=== PATIENT | male | born 1935 | race African-American/Black ===

== ENCOUNTER → 2017-09-18 | Outpatient (CLI) | payer MEDICARE | END | disposition home or self-care (01) | LOC: KCIC US 14:56 | DX: M79.661 Pain in right lower leg (principal) | CPT/HCPCS: 93971 ==

== ENCOUNTER 2018-11-22 19:56 | Emergency (ER) | payer MEDICARE, BC ==
[~2018-11-22] VITALS: Ht 172.7 cm; Wt 81.6 kg
[~2018-11-22 19:56] MED LIST: FINA5TAB4 PO; RANI150T2 PO; SIMV20TA3 PO; TERA10CA3 PO
[2018-11-22 20:12] LABS: BILIRUBIN,URINE LARGE (NEG); CLARITY,URINE TURBID; NITRITE,URINE POSITIVE (NEG); PH,URINE 5.5; PROTEIN,URINE >=300 mg/dL (NEG-TRACE)
[2018-11-22 20:24] LABS: COLOR,URINE BROWN
[2018-11-22 20:25] LABS: RBC,URINE TNTC /HPF (0-2)
[2018-11-22 20:26] LABS: BACTERIA,URINE MODERATE /HPF (0-FEW); WBC,URINE TNTC /HPF (0-4)
--- NOTE | 2018-11-22 20:26 | PHYS DOC ---
Past Medical History Past Medical History: GERD, High Cholesterol, Hypertension, Other Additional Past Medical Histor: glaucoma, constipation, prostate Past Surgical History: Other Additional Past Surgical Histo: colonscopy Alcohol Use: None Drug Use: None Adult General Chief Complaint Chief Complaint: BLOOD IN URINE HPI HPI Patient is a 83 year old female with history of hypertension, high cholesterol, BPH, who presents to the ED today complaining of hematuria that began this morning. Patient denies any dysuria. Denies any abdominal pain, nausea vomiting. Denies any personal history of kidney stones. Denies any fever. Review of Systems Review of Systems Constitutional: Denies fever or chills [] Eyes: Denies change in visual acuity, redness, or eye pain [] HENT: Denies nasal congestion or sore throat [] Respiratory: Denies cough or shortness of breath [] Cardiovascular: No additional information not addressed in HPI [] GI: Denies abdominal pain, nausea, vomiting, bloody stools or diarrhea [] : Reports hematuria. Denies dysuria Musculoskeletal: Denies back pain or joint pain [] Integument: Denies rash or skin lesions [] Neurologic: Denies headache, focal weakness or sensory changes [] All other systems were reviewed and found to be within normal limits, except as documented in this note. Current Medications Current Medications Current Medications Medications (Trade) Dose Ordered Sig/Jaja Start Time Stop Time Status Last Admin Dose Admin Ceftriaxone Sodium (Rocephin) 1 gm 1X ONCE 11/22/18 20:45 11/22/18 20:46 DC 11/22/18 20:49 1 GM Allergies Allergies Allergies Coded Allergies Type Severity Reaction Last Updated Verified No Known Drug Allergies 03/27/15 No Physical Exam Physical Exam Constitutional: Well developed, well nourished, no acute distress, non-toxic appearance. [] HENT: Normocephalic, atraumatic, bilateral external ears normal, oropharynx moist, no oral exudates, nose normal. [] Eyes: PERRLA, EOMI, conjunctiva normal, no discharge. [] Neck: Normal range of motion, no tenderness, supple, no stridor. [] Cardiovascular:Heart rate regular rhythm, no murmur [] Lungs & Thorax: Bilateral breath sounds clear to auscultation [] Abdomen: Bowel sounds normal, soft, no tenderness, no masses, no pulsatile masses. [] Skin: Warm, dry, no erythema, no rash. [] Back: No tenderness, no CVA tenderness. [] Extremities: No tenderness, no cyanosis, no clubbing, ROM intact, no edema. [] Neurologic: Alert and oriented X 3, normal motor function, normal sensory function, no focal deficits noted. [] Psychologic: Affect normal, judgement normal, mood normal. [] Current Patient Data Vital Signs Vital Signs Date Time Temp Pulse Resp B/P (MAP) Pulse Ox O2 Delivery O2 Flow Rate FiO2 11/22/18 20:58 98.2 91 18 142/81 (101) 95 Room Air 98.2 Lab Values Laboratory Tests Test 11/22/18 20:02 11/22/18 20:42 Urine Collection Type Unknown Urine Color Brown Urine Clarity Turbid Urine pH 5.5 Urine Specific [place] 1.025 Urine Protein >=300 mg/dL (NEG-TRACE) Urine Glucose (UA) Negative mg/dL (NEG) Urine Ketones (Stick) 15 mg/dL (NEG) Urine Blood Large (NEG) Urine Nitrite Positive (NEG) Urine Bilirubin Large (NEG) Urine Urobilinogen Dipstick 1.0 mg/dL (0.2 mg/dL) Urine Leukocyte Esterase Large (NEG) Urine RBC Tntc /HPF (0-2) Urine WBC Tntc /HPF (0-4) Urine Bacteria Moderate /HPF (0-FEW) Urine Mucus Mod /LPF White Blood Count 4.2 x10^3/uL (4.0-11.0) Red Blood Count 4.88 x10^6/uL (4.30-5.70) Hemoglobin 13.0 g/dL (13.0-17.5) Hematocrit 41.0 % (39.0-53.0) Mean Corpuscular Volume 84 fL (79-100) Mean Corpuscular Hemoglobin 27 pg (25-35) Mean Corpuscular Hemoglobin Concent 32 g/dL (31-37) Red Cell Distribution Width 15.0 % (11.5-14.5) H Platelet Count 186 x10^3/uL (140-400) Neutrophils (%) (Auto) 73 % (31-73) Lymphocytes (%) (Auto) 16 % (24-48) L Monocytes (%) (Auto) 10 % (0-9) H Eosinophils (%) (Auto) 1 % (0-3) Basophils (%) (Auto) 0 % (0-3) Neutrophils # (Auto) 3.1 x10^3uL (1.8-7.7) Lymphocytes # (Auto) 0.7 x10^3/uL (1.0-4.8) L Monocytes # (Auto) 0.4 x10^3/uL (0.0-1.1) Eosinophils # (Auto) 0.0 x10^3/uL (0.0-0.7) Basophils # (Auto) 0.0 x10^3/uL (0.0-0.2) Sodium Level 140 mmol/L (136-145) Potassium Level 3.7 mmol/L (3.5-5.1) Chloride Level 105 mmol/L (98-107) Carbon Dioxide Level 26 mmol/L (21-32) Anion Gap 9 (6-14) Blood Urea Nitrogen 21 mg/dL (8-26) Creatinine 1.6 mg/dL (0.7-1.3) H Estimated GFR (Cockcroft-Gault) 50.4 Glucose Level 129 mg/dL (70-99) H Calcium Level 8.7 mg/dL (8.5-10.1) Laboratory Tests 11/22/18 20:42 Laboratory Tests 11/22/18 20:42 EKG EKG [] Radiology/Procedures Radiology/Procedures []PROCEDURE: CT ABDOMEN PELVIS WO CONTRAST CT ABDOMEN PELVIS WO CONTRAST Indication: Hematuria. Exposure: One or more of the following individualized dose reduction techniques were utilized for this examination: 1. Automated exposure control 2. Adjustment of the mA and/or kV according to patient size 3. Use of iterative reconstruction technique. Comparison: None are available. Technique: No intravenous contrast given. No oral contrast per request. Findings: Evaluation of solid viscera, bowel and vasculature is compromised by the noncontrast technique. Lung bases are clear apart from minimal atelectasis or fibrosis. Multiple small low-density lesions within the liver. These are difficult to accurately characterize for the most part, the largest of these measures 2 Hounsfield units compatible with a cyst however. Spleen not enlarged. No peripancreatic fluid or inflammatory type change. No evidence of adrenal mass. There is no evidence of renal calculus. No hydronephrosis or evidence of ureteric calculus. Small hypodense lesion of the posterior left kidney measures about 1 cm, probable cyst. No evidence of calcified gallstone. There is mild aortic calcification. No significant lymph node enlargement. There is no evidence of significant small bowel distention. Colonic diverticulosis, without evidence of acute colitis. The appendix appears normal. No evidence of ascites or pneumoperitoneum. There is urinary bladder wall thickening. The prostate gland is enlarged. 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 IMPRESSION: 1. Colonic diverticulosis without evidence of acute colitis. 2. Small low-density lesions of the liver, some are too small to characterize but likely cysts or other benign etiology. 3. Small left renal lesion, most likely a small cyst. 4. Prostatomegaly. 5. Urinary bladder wall thickening. Possible etiologies include chronic outlet obstruction or cystitis. Electronically signed by: Shailesh Vazquez MD (11/22/2018 9:39 PM) [facility] Course & Med Decision Making Course & Med Decision Making Pertinent Labs and Imaging studies reviewed. (See chart for details) This is a 83-year-old male patient presenting to the ED today with hematuria that began this morning, no other symptoms. CBC with a normal WBC, BMP with creatinine of 1.6, BUN is normal, this is around patient's baseline. urine analysis is noted for large amount of leukocytes, blood, nitrites. CT of the abdomen and pelvic was noted for a large prostate which patient is aware of and on medication for, diverticulosis without colitis, benign liver lesions, small left renal cyst, and urinary bladder thickening with possibility of cystitis or chronic outlet obstruction. Patient was given Rocephin and discharged on cephalexin. Instructed to push fluids. His vitals and stable with normal temperature. Is in no distress. Has good follow-up. He was discharged to home and instructed to see his doctor in the course of this coming week, also provided urology. Dragon Disclaimer Dragon Disclaimer This electronic medical record was generated, in whole or in part, using a voice recognition dictation system. Departure Departure Impression: Primary Impression: Acute cystitis Additional Impression: Chronic renal failure Disposition: HOME, SELF-CARE Condition: STABLE Referrals: YINA JOSEPH Jr, MD (PCP) follow up with your doctor next week BRANDEE MONTALVO MD follow up next week Patient Instructions: Urinary Tract Infection Additional Instructions: You were evaluated in the emergency room and noted to have a bladder infection. We put you on antibiotics, ensure you complete them. Push fluids. Follow-up with your doctor in the course of this week or the provided urologist, come back to the ED at any point symptoms worsen. Scripts Cephalexin (CEPHALEXIN) 500 Mg Tablet 1 TAB PO BID, #14 TAB Prov: TEO VINCENT APRN 11/22/18 Problem Qualifiers Primary Impression: Acute cystitis Hematuria presence: with hematuria Qualified Codes: N30.01 - Acute cystitis with hematuria Additional Impression: Chronic renal failure Chronic kidney disease stage: unspecified stage Qualified Codes: N18.9 - Chronic kidney disease, unspecified TEO VINCENT SALES DEVELOPMENT SPECIALIST November 22, 2018 20:25
[2018-11-22] MEDS ORDERED: cefTRIAXone IV Push 1 GM VIAL. IVP ONE (20:45)
[2018-11-22 20:56] LABS: BASO % 0 % (0-3); EOS % 1 % (0-3); LYMPH # 0.7 x10^3/uL (1.0-4.8); LYMPH % 16 % (24-48); MEAN CORPUSCULAR HEMOGLOBIN 27 pg (25-35); MEAN CORPUSCULAR HGB CONC 32 g/dL (31-37); MEAN CORPUSCULAR VOLUME 84 fL (79-100); MONO # 0.4 x10^3/uL (0.0-1.1); MONO % 10 % (0-9); NEUT # 3.1 x10^3uL (1.8-7.7); NEUT % 73 % (31-73); PLATELET COUNT 186 x10^3/uL (140-400); RED BLOOD COUNT 4.88 x10^6/uL (4.30-5.70); WHITE BLOOD COUNT 4.2 x10^3/uL (4.0-11.0)
[2018-11-22 20:58] VITALS: BP 142/81
[2018-11-22 21:14] LABS: CALCIUM 8.7 mg/dL (8.5-10.1); CREATININE 1.6 mg/dL (0.7-1.3); GFR 50.4; POTASSIUM 3.7 mmol/L (3.5-5.1)
--- NOTE | 2018-11-22 21:42 | RAD ---
CT ABDOMEN PELVIS WO CONTRAST Indication: Hematuria. Exposure: One or more of the following individualized dose reduction techniques were utilized for this examination: 1. Automated exposure control 2. Adjustment of the mA and/or kV according to patient size 3. Use of iterative reconstruction technique. Comparison: None are available. Technique: No intravenous contrast given. No oral contrast per request. Findings: Evaluation of solid viscera, bowel and vasculature is compromised by the noncontrast technique. Lung bases are clear apart from minimal atelectasis or fibrosis. Multiple small low-density lesions within the liver. These are difficult to accurately characterize for the most part, the largest of these measures 2 Hounsfield units compatible with a cyst however. Spleen not enlarged. No peripancreatic fluid or inflammatory type change. No evidence of adrenal mass. There is no evidence of renal calculus. No hydronephrosis or evidence of ureteric calculus. Small hypodense lesion of the posterior left kidney measures about 1 cm, probable cyst. No evidence of calcified gallstone. There is mild aortic calcification. No significant lymph node enlargement. There is no evidence of significant small bowel distention. Colonic diverticulosis, without evidence of acute colitis. The appendix appears normal. No evidence of ascites or pneumoperitoneum. There is urinary bladder wall thickening. The prostate gland is enlarged. 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 IMPRESSION: 1. Colonic diverticulosis without evidence of acute colitis. 2. Small low-density lesions of the liver, some are too small to characterize but likely cysts or other benign etiology. 3. Small left renal lesion, most likely a small cyst. 4. Prostatomegaly. 5. Urinary bladder wall thickening. Possible etiologies include chronic outlet obstruction or cystitis. Electronically signed by: Shailesh Vazquez MD (11/22/2018 9:39 PM) [facility] [place]
[2018-11-22] MEDS ORDERED: CEPH500T PO (21:56)
== END 2018-11-22 22:05 | disposition home or self-care (01) ==
LOC: ER 19:56
DX: I12.9 Hypertensive chronic kidney disease with stage 1 through stage 4 chronic kidney disease, or unspecified chronic kidney disease (principal); N18.9 Chronic kidney disease, unspecified; N30.01 Acute cystitis with hematuria; K57.32 Diverticulitis of large intestine without perforation or abscess without bleeding; E78.00 Pure hypercholesterolemia, unspecified; K21.9 Gastro-esophageal reflux disease without esophagitis
CPT/HCPCS: 36415; 74176; 80048; 81001; 85025; 87086; 96374; 99285; J0696; 87186

== ENCOUNTER → 2018-12-11 | Outpatient (CLI) | payer MEDICARE, BC ==
[2018-11-22 20:58] VITALS: BP 142/81
[~2018-12-11] MED LIST changes: +CEPH500T PO; +CONTRAST GIVEN. MC PRN; +IOHEXOL 300 MG/ML 100ML VIAL. IV ONE
--- NOTE | 2018-12-11 15:37 | RAD ---
CT of the abdomen and pelvis with contrast, 12/11/2018: HISTORY: Hematuria Multidetector imaging of the abdomen was performed in a nephrographic phase following an IV bolus injection of iodinated contrast material. No oral contrast material was administered for this study. Delayed views of the abdomen and pelvis were also obtained in the excretory phase. 3-D MIP images reconstructions were performed from the excretory phase data. There is a 1.2 cm low-density lesion in the posterior aspect of left kidney compatible with a cyst. There is a small parapelvic renal cyst on the right. The kidneys show no evidence of obstruction. The ureters are unremarkable. There is moderate prostatic enlargement. The prostate gland measures 5.5 cm in width. It is producing a prominent impression along the floor of the partially filled urinary bladder. The bladder qureshi are mildly thickened in a diffuse manner. There multiple well-defined low density lesions in the liver. Although some of these are too small to definitively characterize, the overall pattern is most compatible with multiple cysts. No bile duct dilatation is seen. The gallbladder is unremarkable. No pancreatic abnormality is detected. The spleen is of normal caliber. A tiny accessory spleen is noted. There is mild aortoiliac calcific plaquing without evidence of aneurysm. Minimal coronary artery calcifications are noted. No abdominal or pelvic adenopathy is seen. Moderate colonic diverticulosis is present, most extensive in the sigmoid region. No paracolonic inflammatory process is seen. The bowel loops are not dilated. The appendix is visualized and shows no abnormality. No free fluid or free air is evident in the abdomen or pelvis. Mild scattered degenerative changes are present in the spine. IMPRESSION: 1. Moderate nonspecific prostatic enlargement. 2. Mild diffuse bladder wall thickening, most likely secondary to chronic bladder outlet obstruction. 3. Moderate sigmoid diverticulosis. 4. Hepatic and renal cysts. PQRS Compliance Statement: One or more of the following individualized dose reduction techniques were utilized for this examination: 1. Automated exposure control 2. Adjustment of the mA and/or kV according to patient size 3. Use of iterative reconstruction technique Electronically signed by: Yovany Ford MD (12/11/2018 3:34 PM) [facility]
== END | disposition home or self-care (01) ==
LOC: CT 07:49
PROVIDERS: ATTEND Urology
DX: N40.0 Benign prostatic hyperplasia without lower urinary tract symptoms (principal); K57.30 Diverticulosis of large intestine without perforation or abscess without bleeding; N32.0 Bladder-neck obstruction; N28.1 Cyst of kidney, acquired; K76.89 Other specified diseases of liver; I70.0 Atherosclerosis of aorta; I25.10 Atherosclerotic heart disease of native coronary artery without angina pectoris; M47.819 Spondylosis without myelopathy or radiculopathy, site unspecified
CPT/HCPCS: 74177; Q9967

== ENCOUNTER 2019-03-28 06:53 | Emergency (ER) | payer MEDICARE, BC ==
[~2019-03-28] VITALS: Ht 172.7 cm; Wt 81.6 kg
[~2019-03-28 06:53] MED LIST changes: -CONTRAST GIVEN. MC PRN; -IOHEXOL 300 MG/ML 100ML VIAL. IV ONE
[2019-03-28 07:32] LABS: BASO % 1 % (0-3); EOS # 0.1 x10^3/uL (0.0-0.7); EOS % 2 % (0-3); HEMOGLOBIN 13.2 g/dL (13.0-17.5); LYMPH # 0.7 x10^3/uL (1.0-4.8); LYMPH % 24 % (24-48); MEAN CORPUSCULAR HEMOGLOBIN 27 pg (25-35); MEAN CORPUSCULAR HGB CONC 32 g/dL (31-37); MEAN CORPUSCULAR VOLUME 84 fL (79-100); MONO # 0.5 x10^3/uL (0.0-1.1); MONO % 16 % (0-9); NEUT # 1.7 x10^3/uL (1.8-7.7); NEUT % 58 % (31-73); PLATELET COUNT 191 x10^3/uL (140-400); RED BLOOD COUNT 4.88 x10^6/uL (4.30-5.70); RED CELL DISTRIBUTION WIDTH 15.4 % (11.5-14.5)
[2019-03-28 07:33] LABS: BILIRUBIN,URINE NEGATIVE (NEG); CLARITY,URINE CLOUDY; COLOR,URINE YELLOW; NITRITE,URINE POSITIVE (NEG); PH,URINE 5.5; PROTEIN,URINE 100 mg/dL (NEG-TRACE); UROBILINOGEN,URINE 0.2 mg/dL (0.2 mg/dL)
[2019-03-28 07:37] LABS: FECAL OB PT NEGATIVE (NEG)
[2019-03-28 07:45] LABS: RBC,URINE >40 /HPF (0-2); WBC,URINE TNTC /HPF (0-4)
[2019-03-28] MEDS ORDERED: IOHEXOL 240 MG/ML 50ML VIAL. PO ONE (07:45)
[2019-03-28] MEDS ORDERED: IOHEXOL 300 MG/ML 100ML VIAL. IV ONE (07:45)
[2019-03-28 07:47] LABS: BACTERIA,URINE MANY /HPF (0-FEW)
--- NOTE | 2019-03-28 08:13 | PHYS DOC ---
Past Medical History Past Medical History: GERD, High Cholesterol, Hypertension, Other Additional Past Medical Histor: glaucoma, constipation, prostate ca w/ radiation Past Surgical History: Other Additional Past Surgical Histo: colonscopy Alcohol Use: None Drug Use: None Adult General Chief Complaint Chief Complaint: RECTAL BLEED [facility] HPI Patient is a 84 year old male who presents with complaining of bloody stools. Patient complaining of one episode of rectal bleeding per day for the last 2-3 days with moderate amount of bright red blood at toilet stools without blood clots or rectal pain or constipation. Patient denies abdominal pain, nausea and vomiting, using anticoagulation except for 81 mg of aspirin daily, taking [id number] NSAIDS, history of rectal bleeding. Patient states he had a colonoscopy several years ago without problem. Patient had history of hematuria and complaining of problem with his urination for the last couple days and states he had hard time to urinate but denies hematuria and dysuria. Review of Systems Review of Systems Constitutional: Denies fever or chills [] Eyes: Denies change in visual acuity, redness, or eye pain [] HENT: Denies nasal congestion or sore throat [] Respiratory: Denies cough or shortness of breath [] Cardiovascular: No additional information not addressed in HPI [] GI: Denies abdominal pain, nausea, vomiting, diarrhea, reports bloody stool [] : Denies dysuria or hematuria [] Musculoskeletal: Denies back pain or joint pain [] Integument: Denies rash or skin lesions [] Neurologic: Denies headache, focal weakness or sensory changes [] Endocrine: Denies polyuria or polydipsia [] All other systems were reviewed and found to be within normal limits, except as documented in this note. Current Medications Current Medications Current Medications Medications (Trade) Dose Ordered Sig/Jaja Start Time Stop Time Status Last Admin Dose Admin Ceftriaxone Sodium (Rocephin) 1 gm 1X ONCE 03/28/19 09:00 03/28/19 09:01 DC 03/28/19 10:05 1 GM Iohexol (Omnipaque 240 Mg/ml) 30 ml 1X ONCE 03/28/19 07:45 03/28/19 07:46 DC 03/28/19 09:02 30 ML Iohexol (Omnipaque 300 Mg/ml) 75 ml 1X ONCE 03/28/19 07:45 03/28/19 07:46 DC 03/28/19 09:02 75 ML Allergies Allergies Allergies Coded Allergies Type Severity Reaction Last Updated Verified No Known Drug Allergies 03/27/15 No Physical Exam Physical Exam Constitutional: Well developed, well nourished, mild distress, non-toxic appearance. [] HENT: Normocephalic, atraumatic. Eyes: PERRLA, EOMI, conjunctiva normal, no discharge. [] Neck: Normal range of motion, no tenderness, supple, no stridor. [] Cardiovascular:Heart rate regular rhythm, no murmur [] Lungs & Thorax: Bilateral breath sounds clear to auscultation [] Abdomen: Bowel sounds normal, soft, no tenderness, no masses, no pulsatile masses. Rectal exam with present of associate creative director showed normal external anal area without hemorrhoid or anal fissure, increase his sphincter tone without tenderness or palpable mass or gross blood. Skin: Warm, dry, no erythema, no rash. [] Back: No tenderness, no CVA tenderness. [] Extremities: No tenderness, no cyanosis, no clubbing, ROM intact, no edema. [] Neurologic: Alert and oriented X 3, no focal deficits noted. [] Psychologic: Affect normal, judgement normal, mood normal. [] Current Patient Data Vital Signs Vital Signs Date Time Temp Pulse Resp B/P (MAP) Pulse Ox O2 Delivery O2 Flow Rate FiO2 03/28/19 10:08 77 16 170/80 (110) 97 03/28/19 08:49 Room Air 03/28/19 07:01 97.5 97.5 Lab Values Laboratory Tests Test 03/28/19 07:10 03/28/19 07:15 03/28/19 07:50 Urine Collection Type Unknown Urine Color Yellow Urine Clarity Cloudy Urine pH 5.5 Urine Specific [place] 1.020 Urine Protein 100 mg/dL (NEG-TRACE) Urine Glucose (UA) Negative mg/dL (NEG) Urine Ketones (Stick) Negative mg/dL (NEG) Urine Blood Large (NEG) Urine Nitrite Positive (NEG) Urine Bilirubin Negative (NEG) Urine Urobilinogen Dipstick 0.2 mg/dL (0.2 mg/dL) Urine Leukocyte Esterase Large (NEG) Urine RBC >40 /HPF (0-2) Urine WBC Tntc /HPF (0-4) Urine Bacteria Many /HPF (0-FEW) Urine Mucus Mod /LPF Stool Occult Blood Negative (NEG) White Blood Count 3.0 x10^3/uL (4.0-11.0) L Red Blood Count 4.88 x10^6/uL (4.30-5.70) Hemoglobin 13.2 g/dL (13.0-17.5) Hematocrit 41.0 % (39.0-53.0) Mean Corpuscular Volume 84 fL (79-100) Mean Corpuscular Hemoglobin 27 pg (25-35) Mean Corpuscular Hemoglobin Concent 32 g/dL (31-37) Red Cell Distribution Width 15.4 % (11.5-14.5) H Platelet Count 191 x10^3/uL (140-400) Neutrophils (%) (Auto) 58 % (31-73) Lymphocytes (%) (Auto) 24 % (24-48) Monocytes (%) (Auto) 16 % (0-9) H Eosinophils (%) (Auto) 2 % (0-3) Basophils (%) (Auto) 1 % (0-3) Neutrophils # (Auto) 1.7 x10^3/uL (1.8-7.7) L Lymphocytes # (Auto) 0.7 x10^3/uL (1.0-4.8) L Monocytes # (Auto) 0.5 x10^3/uL (0.0-1.1) Eosinophils # (Auto) 0.1 x10^3/uL (0.0-0.7) Basophils # (Auto) 0.0 x10^3/uL (0.0-0.2) Prothrombin Time 13.0 SEC (11.7-14.0) Prothrombin Time INR 1.0 (0.8-1.1) Activated Partial Thromboplast Time 25 SEC (24-38) Sodium Level 144 mmol/L (136-145) Potassium Level 3.7 mmol/L (3.5-5.1) Chloride Level 109 mmol/L (98-107) H Carbon Dioxide Level 26 mmol/L (21-32) Anion Gap 9 (6-14) Blood Urea Nitrogen 20 mg/dL (8-26) Creatinine 1.4 mg/dL (0.7-1.3) H Estimated GFR (Cockcroft-Gault) 58.7 BUN/Creatinine Ratio 14 (6-20) Glucose Level 118 mg/dL (70-99) H Calcium Level 8.8 mg/dL (8.5-10.1) Total Bilirubin 0.4 mg/dL (0.2-1.0) Aspartate Amino Transferase (AST) 25 U/L (15-37) Alanine Aminotransferase (ALT) 26 U/L (16-63) Alkaline Phosphatase 59 U/L (46-116) Total Protein 6.6 g/dL (6.4-8.2) Albumin 3.1 g/dL (3.4-5.0) L Albumin/Globulin Ratio 0.9 (1.0-1.7) L Laboratory Tests 03/28/19 07:15 Laboratory Tests 03/28/19 07:50 EKG EKG [] Radiology/Procedures Radiology/Procedures [][facility] [address] [place] [address] IMAGING REPORT Signed PATIENT: TAMMI SANDOVAL ACCOUNT: [id number] : 1935 LOCATION: ER AGE: 84 SEX: M EXAM STATUS: REG ER ORD. PHYSICIAN: KIMBERLY SOLIS MD REASON: rectal bleeding PROCEDURE: CT ABD PELV W/ORAL&IV CONTRAST Examination: CT ABD PELV W/ORAL IV CONTRAST History: Rectal bleeding Comparison/Correlation: 12/11/2018 CT abdomen and pelvis with contrast Findings: Axial images of the abdomen and pelvis were obtained following IV and oral contrast was given. Sagittal and coronal reformatted images were provided. Visualized lung bases are clear. Low-attenuation lesions involving the liver are present and some are too small to characterize. These have remained stable likely representing cysts. Gallbladder fossa is unremarkable. Spleen is normal. Pancreas is unremarkable. Adrenal glands are normal. Left renal posterior interpolar region low-attenuation lesion which probably represents a cyst has decreased in size since the prior exam. No radiopaque collecting system calculi. No ascites or pelvic free fluid. No inflammatory changes about the cecum. No extraluminal gas. Appendix is normal. Mild diverticulosis of the colon is present. No enlarged abdominal or pelvic lymph nodes. Prostate gland is enlarged measuring up to 5.5 cm diameter. There is a 1.2 cm diameter bone island involving the right ilium near the supra acetabular level. Impression: Prostatomegaly. Diverticulosis. No acute inflammatory process. PQRS Compliance Statement: One or more of the following individualized dose reduction techniques were utilized for this examination: 1. Automated exposure control 2. Adjustment of the mA and/or kV according to patient size 3. Use of iterative reconstruction technique Electronically signed by: Christophe Hirsch MD (03/28/2019 9:00 AM) [facility] DICTATED and SIGNED BY: CHRISTOPHE HIRSCH MD DATE: 03/28/19 0900 Course & Med Decision Making Course & Med Decision Making Pertinent Labs and Imaging studies reviewed. (See chart for details) Evaluation of patient in ER showed 84-year-old male patient with complaining of rectal bleeding for 2 or 3 days. Patient had unremarkable physical exam and rectal exam. Guaiac test was negative. UA showed too numerous to count WBC and RBC. Naldo to discharge patient home to diagnose of hemorrhagic cystitis. I've spoken with the patient and/or caregivers. I've explained the patient's condition, diagnosis and treatment plan based on information available to me at this time. I've answered the patient's and/or caregivers questions and addressed any concerns. The patient and/or caregivers have a good understanding the patient's diagnosis, condition and treatment plan as can be expected at this point. Vital signs have been stabilized. The patient's condition is stable for discharge from the emergency department. The patient will pursue further outpatient evaluation with her primary care provider or other designated consulting physician as outlined in the discharge instructions. Patient and/or caregivers are agreeable to this plan of care and follow-up instructions have been explained in detail. The patient and/or caregivers have received these instructions in written format and expressed understanding of these discharge instructions. The patient and her caregivers a re aware that if any significant change in condition or worsening of symptoms should prompt him to immediately return to this of the closest emergency department. If an emergent department is not readily available I would encourage him to call 911. Kelly Disclaimer Dragon Disclaimer This electronic medical record was generated, in whole or in part, using a voice recognition dictation system. Departure Departure Impression: Primary Impression: Hemorrhagic cystitis Additional Impressions: Anxiety about health Chronic renal insufficiency Leukopenia Enlarged prostate Disposition: HOME, SELF-CARE (at 0919) Condition: IMPROVED Referrals: JUVENTINO PADILLA MD (PCP) BRANDEE MONTALVO MD Patient Instructions: Benign Prostatic Hypertrophy, Urinary Tract Infection Additional Instructions: Drink plenty of liquids Follow-up with your primary care physician in 3-5 days Return to ER if not getting better Scripts Cephalexin (KEFLEX) 500 Mg Capsule 2 CAP PO Q12HR, #40 CAP Prov: KIMBERLY SOLIS MD 03/28/19 Problem Qualifiers Additional Impressions: Chronic renal insufficiency Chronic kidney disease stage: unspecified stage Qualified Codes: N18.9 - Chronic kidney disease, unspecified Leukopenia Leukopenia type: unspecified Qualified Codes: D72.819 - Decreased white blood cell count, unspecified KIMBERLY SOLIS MD Mar 28, 2019 08:13
[2019-03-28 08:23] LABS: CALCIUM 8.8 mg/dL (8.5-10.1); CREATININE 1.4 mg/dL (0.7-1.3); GFR 58.7; POTASSIUM 3.7 mmol/L (3.5-5.1)
[2019-03-28 08:28] LABS: ALBUMIN 3.1 g/dL (3.4-5.0); ALBUMIN/GLOBULIN RATIO 0.9 (1.0-1.7); TOTAL BILIRUBIN 0.4 mg/dL (0.2-1.0); TOTAL PROTEIN 6.6 g/dL (6.4-8.2)
[2019-03-28] MEDS ORDERED: cefTRIAXone IV Push 1 GM VIAL. IVP ONE (09:00)
--- NOTE | 2019-03-28 09:04 | RAD ---
Examination: CT ABD PELV W/ORAL IV CONTRAST History: Rectal bleeding Comparison/Correlation: 12/11/2018 CT abdomen and pelvis with contrast Findings: Axial images of the abdomen and pelvis were obtained following IV and oral contrast was given. Sagittal and coronal reformatted images were provided. Visualized lung bases are clear. Low-attenuation lesions involving the liver are present and some are too small to characterize. These have remained stable likely representing cysts. Gallbladder fossa is unremarkable. Spleen is normal. Pancreas is unremarkable. Adrenal glands are normal. Left renal posterior interpolar region low-attenuation lesion which probably represents a cyst has decreased in size since the prior exam. No radiopaque collecting system calculi. No ascites or pelvic free fluid. No inflammatory changes about the cecum. No extraluminal gas. Appendix is normal. Mild diverticulosis of the colon is present. No enlarged abdominal or pelvic lymph nodes. Prostate gland is enlarged measuring up to 5.5 cm diameter. There is a 1.2 cm diameter bone island involving the right ilium near the supra acetabular level. Impression: Prostatomegaly. Diverticulosis. No acute inflammatory process. PQRS Compliance Statement: One or more of the following individualized dose reduction techniques were utilized for this examination: 1. Automated exposure control 2. Adjustment of the mA and/or kV according to patient size 3. Use of iterative reconstruction technique Electronically signed by: Christophe Hall MD (03/28/2019 9:00 AM) [facility]
[2019-03-28] MEDS ORDERED: CEPH-264 PO (09:25)
[2019-03-28 10:08] VITALS: BP 170/80
== END 2019-03-28 10:20 | disposition home or self-care (01) ==
LOC: ER 06:53
DX: N30.90 Cystitis, unspecified without hematuria (principal); I12.9 Hypertensive chronic kidney disease with stage 1 through stage 4 chronic kidney disease, or unspecified chronic kidney disease; N18.9 Chronic kidney disease, unspecified; D72.819 Decreased white blood cell count, unspecified; N40.0 Benign prostatic hyperplasia without lower urinary tract symptoms; K21.9 Gastro-esophageal reflux disease without esophagitis; E78.00 Pure hypercholesterolemia, unspecified
CPT/HCPCS: 36415; 74177; 80053; 81001; 82274; 85025; 85610; 85730; 87086; 96374; 99285; J0696; Q9966; Q9967

== ENCOUNTER 2019-11-09 08:57 | Emergency (ER) | payer MEDICARE, BC ==
[~2019-11-09] VITALS: Ht 172.7 cm; Wt 86.0 kg
[~2019-11-09 08:57] MED LIST changes: +CEPH-264 PO; +SIMV20TA18 PO; -SIMV20TA3 PO
--- NOTE | 2019-11-09 09:28 | PHYS DOC ---
Past Medical History Past Medical History: GERD, High Cholesterol, Hypertension, Other Additional Past Medical Histor: glaucoma, constipation, prostate ca w/ radiation Past Surgical History: Other Additional Past Surgical Histo: colonscopy Smoking Status: Never Smoker Alcohol Use: None Drug Use: None General Adult EDM: Chief Complaint: URINARY RETENTION HPI: HPI: Patient is an 84-year-old male who presents here secondary to constipation as well as some difficulty urinating. He denies any pain at all. He denies any fever chills or sweats. He denies any gross hematuria. He states he has had some prostate problems in the past which have caused him difficulty with urinating. He states he last had a bowel movement yesterday but it was small. He denies any nausea or vomiting. He really does not have any localizing symptoms. [] Review of Systems: Review of Systems: Constitutional: Denies fever or chills. [] Eyes: Denies change in visual acuity. [] HENT: Denies nasal congestion or sore throat. [] Respiratory: Denies cough or shortness of breath. [] Cardiovascular: Denies chest pain or edema. [] GI: Reports constipation. [] : Per HPI. [] Musculoskeletal: Denies back pain or joint pain. [] Integument: Denies rash. [] Neurologic: Denies headache, focal weakness or sensory changes. [] Endocrine: Denies polyuria or polydipsia. [] Lymphatic: Denies swollen glands. [] Psychiatric: Denies depression or anxiety. [] Heart Score: Risk Factors: Risk Factors: DM, Current or recent (<one month) smoker, HTN, HLP, family history of CAD, obesity. Risk Scores: Score 0 - 3: 2.5% MACE over next 6 weeks - Discharge Home Score 4 - 6: 20.3% MACE over next 6 weeks - Admit for Clinical Observation Score 7 - 10: 72.7% MACE over next 6 weeks - Early Invasive Strategies Allergies: Allergies: Allergies Coded Allergies Type Severity Reaction Last Updated Verified No Known Drug Allergies 03/27/15 No Physical Exam: PE: Constitutional: Well developed, well nourished, no acute distress, non-toxic appearance. [] HENT: Normocephalic, atraumatic, bilateral external ears normal, oropharynx moist, no oral exudates, nose normal. [] Eyes: PERRLA, EOMI, conjunctiva normal, no discharge. [] Neck: Normal range of motion, no tenderness, supple, no stridor. [] Cardiovascular:Heart rate regular rhythm, no murmur [] Lungs & Thorax: Bilateral breath sounds clear to auscultation [] Abdomen: Bowel sounds normal, soft, no tenderness, no masses, no pulsatile masses. [] Skin: Warm, dry, no erythema, no rash. [] Back: No tenderness, no CVA tenderness. [] Extremities: No tenderness, no cyanosis, no clubbing, ROM intact, no edema. [] Neurologic: Alert and oriented X 3, normal motor function, normal sensory function, no focal deficits noted. [] Psychologic: Affect normal, judgement normal, mood normal. [] Current Patient Data: Vital Signs: Vital Signs Date Time Temp Pulse Resp B/P (MAP) Pulse Ox O2 Delivery O2 Flow Rate FiO2 11/09/19 09:06 98.1 83 18 170/80 (110) 97 Room Air 98.1 EKG: EKG: [] Radiology/Procedures: Radiology/Procedures: [] Course & Med Decision Making: Course & Med Decision Making Pertinent Labs and Imaging studies reviewed. (See chart for details) [] Dragon Disclaimer: Dragon Disclaimer: This electronic medical record was generated, in whole or in part, using a voice recognition dictation system. Departure Departure Impression: Primary Impression: Dysuria Additional Impression: Constipation Qualified Codes: K59.01 - Slow transit constipation Disposition: HOME, SELF-CARE Condition: STABLE Referrals: JUVENTINO PADILLA MD (PCP) Patient Instructions: Benign Prostatic Hypertrophy, Constipation, Adult Scripts Polyethylene Glycol 3350 (MIRALAX) 119 Gm Powder 17 GM PO DAILY for constipation, #255 GM 0 Refills dissolve in water Prov: CHRISTI DODD DO 11/09/19 Tamsulosin Hcl (FLOMAX) 0.4 Mg Cap.er.24h 1 CAP PO DAILY, #30 CAP 11 Refills Prov: CHRISTI DODD DO 11/09/19 CHRISTI DODD DO Nov 09, 2019 09:28
[2019-11-09 10:29] LABS: BACTERIA,URINE FEW /HPF (0-FEW); BILIRUBIN,URINE NEGATIVE (NEG); CLARITY,URINE CLEAR; COLOR,URINE YELLOW; NITRITE,URINE NEGATIVE (NEG); PROTEIN,URINE NEGATIVE (NEG-TRACE); RBC,URINE 0 /HPF (0-2); SQUAMOUS EPITHELIAL CELL,UR FEW /LPF; UROBILINOGEN,URINE 0.2 mg/dL (0.2 mg/dL)
[2019-11-09] MEDS ORDERED: TAMS0.4C97 PO (10:35)
[2019-11-09] MEDS ORDERED: POLY119P4 PO (10:35)
[2019-11-09 10:53] VITALS: BP 126/64
== END 2019-11-09 10:54 | disposition home or self-care (01) ==
LOC: ER 08:57
DX: R30.0 Dysuria (principal); K59.01 Slow transit constipation; K21.9 Gastro-esophageal reflux disease without esophagitis; E78.00 Pure hypercholesterolemia, unspecified; I10 Essential (primary) hypertension
CPT/HCPCS: 81001; 99284-25

== ENCOUNTER 2020-03-14 10:40 | Emergency (ER) | payer MEDICARE, BC ==
[~2020-03-14] VITALS: Ht 172.7 cm; Wt 79.0 kg
[~2020-03-14 10:40] MED LIST changes: +POLY119P4 PO; +TAMS0.4C97 PO
[2020-03-14] MEDS ORDERED: IV NORMAL SALINE 1000ML BAG 1,000 ML IV ONE (11:00)
--- NOTE | 2020-03-14 11:36 | PHYS DOC ---
Past Medical History Past Medical History: GERD, High Cholesterol, Hypertension, Other Additional Past Medical Histor: glaucoma, constipation, prostate ca w/ radiation Past Surgical History: Other Additional Past Surgical Histo: colonscopy Smoking Status: Never Smoker Alcohol Use: None Drug Use: None General Adult EDM: Chief Complaint: BLOODY STOOL HPI: HPI: Patient is an 85-year-old male referred to the ED by an urgent care physician after complaints of blood in his stool last night and blood in his urine this morning. Patient describes stool as being "dark red" but is not associated with any changes in bowel habits. He states that he has not changed his diet in any way. Patient denies any abdominal pain, diarrhea, constipation, nausea, vomiting, back pain, dysuria. Patient noticed this morning that his urine was red. Patient is unaware of eating or drinking any foods that would turn his urine red like beets or beet juice but does endorse he drank red Armaan-Aid yesterday. Patient has a past medical history of hypertension, type 2 diabetes, and has a family history of cardiovascular disease. Patient describes pain in his legs while walking which is alleviated by rest. Review of Systems: Review of Systems: Constitutional: Denies fever or chills Eyes: Denies redness or eye pain HENT: Denies nasal congestion or sore throat Respiratory: Denies cough or shortness of breath Cardiovascular: Denies chest pain or palpitations GI: Denies abdominal pain, nausea, or vomiting : Denies dysuria, Dors is hematuria Musculoskeletal: Denies back pain or joint pain, dorsal leg Integument: Denies rash or skin lesions Neurologic: Denies headache, focal weakness or sensory changes Complete systems were reviewed and found to be within normal limits, except as documented in this note. Heart Score: Risk Factors: Risk Factors: DM, Current or recent (<one month) smoker, HTN, HLP, family history of CAD, obesity. Risk Scores: Score 0 - 3: 2.5% MACE over next 6 weeks - Discharge Home Score 4 - 6: 20.3% MACE over next 6 weeks - Admit for Clinical Observation Score 7 - 10: 72.7% MACE over next 6 weeks - Early Invasive Strategies Current Medications: Current Medications Medications (Trade) Dose Ordered Sig/Jaja Start Time Stop Time Status Last Admin Dose Admin Sodium Chloride 1,000 ml @ 1,000 mls/hr 1X ONCE 03/14/20 11:00 03/14/20 11:59 Allergies: Allergies: Allergies Coded Allergies Type Severity Reaction Last Updated Verified No Known Drug Allergies 03/27/15 No Physical Exam: PE: Constitutional: Well developed, well nourished, no acute distress, non-toxic appearance HENT: Normocephalic, atraumatic Eyes: PERRL, EOMI, conjunctiva normal, no discharge Neck: Normal range of motion, no tenderness, supple Lungs & Thorax: Bilateral breath sounds clear to auscultation, no wheezing Abdomen: Soft, no tenderness in all 4 quadrants Skin: Warm, dry, no erythema, no rash Back: No tenderness, no CVA tenderness Extremities: No tenderness, ROM intact, no edema Neurologic: Alert and oriented X 3, normal motor function, normal sensory function, no focal deficits noted Psychologic: Affect normal, judgment normal Current Patient Data: Vital Signs: Vital Signs Date Time Temp Pulse Resp B/P (MAP) Pulse Ox O2 Delivery O2 Flow Rate FiO2 03/14/20 11:09 97.1 79 16 166/76 (106) 97 Room Air 97.1 EKG: EK03/14/2020 11:20:48 heart rate 70 bpm, normal sinus rhythm, QRS 100 ms, QT/QTC 394/428 ms Course & Med Decision Making: Course & Med Decision Making Pertinent Labs and Imaging studies reviewed. (See chart for details) Patient is an 85-year-old male referred to the ED by urgent care due to complaints of blood in his stool last night and blood in his urine this morning. Kelly Disclaimer: Kelly Disclaimer: This electronic medical record was generated, in whole or in part, using a voice recognition dictation system. Departure Departure Impression: Primary Impression: UTI (urinary tract infection) Qualified Codes: N30.01 - Acute cystitis with hematuria Additional Impressions: Prostate irregularity Hematuria Qualified Codes: R31.9 - Hematuria, unspecified Disposition: HOME, SELF-CARE Condition: STABLE Referrals: JUVENTINO PADILLA MD (PCP) Patient Instructions: Hematuria, Adult, Incidental Abnormal Radiological Finding, Urinary Tract Infection, [id number] Additional Instructions: Please give copy of your CT results to your doctor for further evaluation. There is concern that you may need further screening of your prostrate. You may also follow closely with an Urologist. Please talk to your PCP or check with your insurance company for a referral. Scripts Cephalexin (KEFLEX) 500 Mg Capsule 500 MG PO TID for 7 Days, #21 CAP Prov: YULIA CASANOVA DO 03/14/20 Justicifation of Admission Dx: Justifications for Admission: Justification of Admission Dx: N/A YULIA CASANOVA DO Mar 14, 2020 11:36
[2020-03-14 11:51] LABS: BASO % 1 % (0-3); EOS % 1 % (0-3); HEMATOCRIT 41.8 % (39.0-53.0); HEMOGLOBIN 13.3 g/dL (13.0-17.5); LYMPH # 0.8 x10^3/uL (1.0-4.8); LYMPH % 16 % (24-48); MEAN CORPUSCULAR HEMOGLOBIN 27 pg (25-35); MEAN CORPUSCULAR HGB CONC 32 g/dL (31-37); MEAN CORPUSCULAR VOLUME 85 fL (79-100); MONO # 0.5 x10^3/uL (0.0-1.1); MONO % 10 % (0-9); NEUT # 3.7 x10^3/uL (1.8-7.7); NEUT % 73 % (31-73); PLATELET COUNT 178 x10^3/uL (140-400); RED BLOOD COUNT 4.93 x10^6/uL (4.30-5.70); RED CELL DISTRIBUTION WIDTH 15.2 % (11.5-14.5)
[2020-03-14 11:52] LABS: BILIRUBIN,URINE NEGATIVE (NEG); CLARITY,URINE CLOUDY; COLOR,URINE YELLOW; NITRITE,URINE POSITIVE (NEG); PH,URINE 8.5 (<5.0-8.0); PROTEIN,URINE 100 mg/dL (NEG-TRACE); UROBILINOGEN,URINE 0.2 mg/dL (0.2 mg/dL)
[2020-03-14 12:00] LABS: PROTHROMBIN TIME PATIENT 12.8 SEC (11.7-14.0)
[2020-03-14 12:01] LABS: BACTERIA,URINE MANY /HPF (0-FEW); RBC,URINE 20-40 /HPF (0-2); WBC,URINE TNTC /HPF (0-4)
[2020-03-14 12:06] LABS: CREATININE 1.4 mg/dL (0.7-1.3); GFR 58.6; POTASSIUM 4.3 mmol/L (3.5-5.1)
[2020-03-14 12:11] LABS: ALBUMIN 3.6 g/dL (3.4-5.0); ALBUMIN/GLOBULIN RATIO 1.1 (1.0-1.7); TOTAL BILIRUBIN 0.7 mg/dL (0.2-1.0); TOTAL PROTEIN 6.9 g/dL (6.4-8.2)
[2020-03-14] MEDS ORDERED: cefTRIAXone IV Push 1 GM VIAL. IVP ONE (12:15)
[2020-03-14] MEDS ORDERED: CONTRAST GIVEN. MC PRN (12:30)
[2020-03-14] MEDS ORDERED: IOHEXOL 300 MG/ML 100ML VIAL. IV ONE (13:00)
--- NOTE | 2020-03-14 13:20 | RAD ---
CT abdomen and pelvis with contrast History: Abdominal pain, hematochezia, hematuria Technique: After the administration of intravenous contrast, CT imaging was performed of the abdomen and pelvis. No oral contrast was given. Multiplanar images are reviewed. Exposure: One or more of the following individualized dose reduction techniques were utilized for this examination: 1. Automated exposure control 2. Adjustment of the mA and/or kV according to patient size 3. Use of iterative reconstruction technique. Comparison: March 28, 2019 Findings: 0.5 cm noncalcified right lower lobe nodule image 11 series 2 is stable. There is no new significant abnormality of the liver, spleen, pancreas, adrenal glands. There are again multiple hypodense foci of the liver, largest of the right lobe about 2.1 cm which has density characteristics suggestive of a cyst although other foci do not have density characteristics of simple cysts. However although overall extent of lesions is similar. There is similar mild bilateral renal pelvocaliectasis. 1.5 cm hypodense lesion of the mid to superior, posterior left kidney is larger, density measurements of a cyst 13 Hounsfield units. Gallbladder is present without obvious intraluminal abnormality by CT. Accurate evaluation of bowel is limited without oral contrast. Bowel is not significantly dilated. There is moderate diverticulosis of the sigmoid colon, other scattered mild diverticulosis. There is no significant localized inflammatory type change about the bowel. There is no free fluid or free air. Appendix caliber is upper limits of normal in caliber about 0.6 cm as seen previously, no adjacent inflammatory change. There is degenerative disc disease and vacuum phenomenon L3-4 through L5-S1. There is multilevel lumbar facet degenerative change. There are disc bulges L3-4 through L5-S1 contributing to multilevel lateral recess stenosis at these levels. There is again prominent, nodular appearing prostatomegaly indenting the base of urinary bladder greater on the left, overall size about 5.7 cm transverse by 6.2 cm AP by 7.1 cm CC. There is mild circumferential prominence of urinary bladder qureshi. There is again small vesicourachal diverticulum at superior margin of the urinary bladder about 5 mm AP by 7 mm transverse. 1.1 cm sclerotic lesion of the right iliac bone is stable. Impression: 1. There is prominent, nodular appearing prostatomegaly indenting the base of urinary bladder greater on the left, prostate cancer screening advised if not already performed. There is mild circumferential procedure bladder qureshi which can be component of chronic outlet obstruction with suspicion for cystitis, cannot accurately exclude underlying mass by this exam. 2. There is sigmoid diverticulosis, no significant inflammatory type change about the bowel. 3. There is degenerative disc disease of the lumbar spine greatest L3-4 through L5-S1, also disc bulges at these levels contributing lateral recess stenosis. 4. There are similar scattered hypodense foci of the liver. There is left renal cyst. Electronically signed by: Brady Collado MD (03/14/2020 1:17 PM) [id number]
[2020-03-14] MEDS ORDERED: CEPH-264 PO (13:39)
[2020-03-14 14:00] VITALS: BP 161/73
--- NOTE | 2020-03-14 17:14 | EKG ---
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
== END 2020-03-14 14:22 | disposition home or self-care (01) ==
LOC: ER 10:40
DX: N30.01 Acute cystitis with hematuria (principal); K21.9 Gastro-esophageal reflux disease without esophagitis; E78.00 Pure hypercholesterolemia, unspecified; I10 Essential (primary) hypertension; Z85.46 Personal history of malignant neoplasm of prostate; Z98.890 Other specified postprocedural states
CPT/HCPCS: 36415; 74177; 80053; 81001; 82553; 83605; 83690; 84484; 85025; 85610; 85730; 86850; 86900; 86901; 87086; 93005; 96361; 96374; 99285; J0696; J7030; Q9967

== ENCOUNTER → 2020-08-08 | Outpatient (CLI) | payer MEDICARE, BC ==
[2020-07-07 10:33] VITALS: BP 141/76
[~2020-08-08] MED LIST changes: +ASPI-886 PO; +CIPR250T30 PO; +LATANOPROST; +METO-239 PO; +REGADENOSON 0.4 MG/5 ML DISP.SYRIN. IV ONE
--- NOTE | 2020-08-08 12:58 | RAD ---
MR#: [id number] Date of Study: 08/08/2020 Ordering Physician: ANGELA MCKINNON, Referring Physician: CAROL MOREIRA Tech: SINCERE Cooper, ARRT (R) (N) APPROVED REPORT Test Type: Pharmacological Stress Nurse/Tech: Asa Bah RN Test Indications: LBBB, elevated troponin Cardiac History: DM Medications: See Electronic Medical Record Medical History: See Electronic Medical Record Resting ECG: SR PAC Resting Heart Rate: 71 bpm Resting Blood Pressure: 139/66mmHg Pretest Chest Pain: None Nurse/Tech Notes lungs CTA Consent: The procedure was explained to the patient in lay terms. Informed consent was witnessed. Fahad eout was entered into [employer]. History and Stress Test performed by RT Cassie (R) (N) Pharm. Details Pharmacologic stress testing was performed using 0.4mg per 5ml of regadenoson given intravenously ove r 7-10 seconds. Stress Symptoms No chest pain or symptoms. POST EXERCISE Reason for Termination: Infusion complete Max HR: 97 bpm Max Blood Pressure: 133/63mmHg Blood Pressure response to exercise: Normal blood pressure response during stress. Heart Rate response to exercise: normal response Chest Pain: No. Arrhythmia: No. ST Change: No. INTERPRETATION Stress EKG Conclusion: The resting EKG shows a sinus rhythm with a left BBB. The stress EKG shows no significant changes from baseline. No EKG evidence of stress-induced ischemia. Imaging Protocol IMAGE PROTOCOL: Rest Tc-99m/stress Tc-99m 1 day Rest: Stress: Viability: Radiopharm.Tc99m IdimerphkLo69l Sestamibi Dose10.6mCi 32mCi Img Date 08/08/2020 08/08/2020 Inj-Img [id number]. 60min. Rest Admin Site:IV - Right AntecubitalAdministrator:RT Cassie (R)(N) Stress Admin Site: IV - Right AntecubitalAdministrator: RT Cassie (R)(N) STRESS DATA End Diast. Vol.105.0mlAv. Heart Rate76.0bpm End Syst. Vol.41.0mlCO Index BSA0.0L/min Myocardial Cfoa145.0gEject. Xgwhtmdc29.0% Stress Rates Pk. Fill Rate2.56EDV/secLVtime Pk. Fill 176.06msec Pk. Empty Rate4.29ESV/secLVtime Pk. Iroob129.75msec 1/3 Pk. Fill0.74EDV/sec Stress Scores Regional WT1.00Summed WT14.00 Regional WM0.00Summed WM3.00 LV Perfusion The stress images show a slight apical defect. The rest images show a slight apical defect. Nuclear imaging shows no reversible ischemia. Nuclear imaging showed a slight fixed apical defect most consistent with a technical artifact. Wall Motion Left ventricular systolic function is normal with no regional wall motion abnormalities and an ejecti on fraction of 59%. LV Perf. Quant 17 Seg. SSS5.00 17 Seg. SRS5.00 17 Seg. SDS1.00 Stress Defect Extent (% LAD)13.80Rest Defect Extent (% LAD)7.50Rev. Defect Extent (% LAD)5.00 Stress Defect Extent (% LCX) 12.50Rest Defect Extent (% LCX)7.50Rev. Defect Extent (% LCX)0.00 Stress Defect Extent (% RCA)0.00Rest Defect Extent (% RCA)0.00Rev. Defect Extent (% RCA)0.00 Stress Defect Extent (% JUAN PABLO)10.20Rest Defect Extent (% JUAN PABLO)8.70Rev. Defect Extent (% JUAN PABLO)2.00 Conclusion 1. Abnormal baseline EKG but no EKG evidence of stress-induced ischemia. 2. Nuclear imaging shows no reversible ischemia. 3. Nuclear imaging shows a slight fixed apical defect most consistent with a technical artifact. 4. Left ventricular systolic function is normal with no regional wall motion abnormalities and an eje ction fraction of 59%. 5. Moderately low risk Lexiscan nuclear stress test. Signed by : Jake Johnson MD Electronically Approved : 08/08/2020 12:58:42
== END ==
LOC: NM 08:57
PROVIDERS: ATTEND Internal Medicine Cardiovascular Disease
DX: R77.9 Abnormality of plasma protein, unspecified (principal)
CPT/HCPCS: 78452; 93017; A9500; J2785

== ENCOUNTER → 2020-10-24 | Outpatient (CLI) | payer MEDICARE, BC ==
[2020-07-07 10:33] VITALS: BP 141/76
[~2020-10-24] MED LIST changes: -REGADENOSON 0.4 MG/5 ML DISP.SYRIN. IV ONE
--- NOTE | 2020-10-24 16:59 | RAD ---
EXAM: Renal sonogram. HISTORY: Gross hematuria. TECHNIQUE: Sonographic imaging of the kidneys and bladder was performed. COMPARISON: None. FINDINGS: The the kidneys are normal in size. There are simple left renal cyst measuring 1.6 cm and 1 .9 cm. No solid renal lesion is seen. There is no hydronephrosis. There is deformation of the bladder due to enlarged prostate. The ureteral jets are both seen. IMPRESSION: 1. Simple left renal cyst. Follow-up is not routinely performed for simple cysts. 2. Prostatomegaly. Electronically signed by: Heaven Del Toro MD (10/24/2020 4:57 PM) [facility]
== END ==
LOC: US 14:51
PROVIDERS: ATTEND Urology
DX: N28.1 Cyst of kidney, acquired (principal); N40.1 Benign prostatic hyperplasia with lower urinary tract symptoms; R31.0 Gross hematuria; N32.81 Overactive bladder
CPT/HCPCS: 76770